=== PATIENT | male | born 1960 | race Caucasian/White ===

== ENCOUNTER → 2016-03-07 | Outpatient (REF) ==
[~2016-03-07] MED LIST: EXCEDRIN MIGRAI1 TAB PO; LOPRESSOR; LORTAB 5/500 501 TAB PO; NAPROSYN PO; NO HOME MEDICATIONS; NORCO 325 MG-51 TAB PO; PEN-VEE K500 MG PO; PERCOCET 325 MG1 TA2 PO; PERCOCET 5/321 UDTAB PO; PRINIVIL10 MG PO; PRINIVIL20 MG PO; PROAIR HFA0.09 MG/AC; RT ADVAIR 228 DISKUS IH; RT SPIRIVA18 MCG IH; SPIRIVA RE2.5 MCG/Ac IH; TOPROL XL 25MG25 MG PO; ULTRAM 50MG TAB50 MG PO; VALIUM5 MG PO; ZITHROMAX 250M250 MG PO
== END ==
LOC: WSOH 10:00
DX: Z02.89 Encounter for other administrative examinations (principal)

== ENCOUNTER → 2016-06-14 | Outpatient (REF) ==
[2016-06-14 13:42] LABS: THYROID STIMULATING HORMONE 1.79 uIU/mL (0.465-4.680)
[2016-06-14 14:28] LABS: PSA-TOTAL 1.32 ng/mL (0-4)
== END ==
LOC: ZLAB.WCH 11:37
PROVIDERS: Internal Medicine
DX: Z01.89 Encounter for other specified special examinations (principal)
CPT/HCPCS: G0103

== ENCOUNTER → 2016-11-13 | Outpatient (REF) | LOC: ZLAB.WCH 11:29 | DX: Z01.89 Encounter for other specified special examinations (principal) ==

== ENCOUNTER 2020-11-23 07:32 | Day surgery (SDC) | payer OTHER ==
[~2020-11-23] VITALS: Ht 170.2 cm; Wt 77.8 kg
[2020-11-23 08:33] VITALS: BP 99/58; PULSE 75; TEMP 97.3
[2020-11-23] MEDS ORDERED: PRINIVIL2.5 MG PO (08:41)
[2020-11-23] MEDS ORDERED: TOPROL XL 25MG25 MG PO (08:41)
[2020-11-23] MEDS ORDERED: ASPIRIN E.C. 8181 MG PO (08:42)
[2020-11-23] MEDS ORDERED: CRESTOR20 MG PO (08:42)
[2020-11-23] MEDS ORDERED: HCTZ12.5TAB PO (08:42)
[2020-11-23 09:50] VITALS: BP 92/55; PULSE 74
[2020-11-23 10:00] VITALS: BP 101/73; PULSE 73
[2020-11-23 10:15] VITALS: BP 99/62; PULSE 60
--- NOTE | 2020-11-23 10:35 | NUR ---
0950 Pt returns from endo procedure via cart and RN assist to [facility] [place] [facility]. Pt ambulates from cart to recliner with RN assist. Monitors on and alarms set. Call light within reach. Report received from [facility] Brasher. Pt alert and oriented. Pt requests Sprite and saltines. Pt denies any pain or nausea. 1000 Pt taking food and drink well. No complications noted. 1028 Discharge instructions given to pt. All questions answered to his satisfaction. Handed to pt are a thank you card and discharge information. 1035 Pt transferred out of the hospital via wheelchair and this RN assist, to private vehicle driven by [employer].
== END 2020-11-23 10:35 | disposition home or self-care (01) ==
LOC: SDCO 07:32
DX: Z12.11 Encounter for screening for malignant neoplasm of colon (principal); D12.5 Benign neoplasm of sigmoid colon; K57.30 Diverticulosis of large intestine without perforation or abscess without bleeding; K90.9 Intestinal malabsorption, unspecified; I10 Essential (primary) hypertension; I34.0 Nonrheumatic mitral (valve) insufficiency; I25.10 Atherosclerotic heart disease of native coronary artery without angina pectoris; J44.9 Chronic obstructive pulmonary disease, unspecified; M19.90 Unspecified osteoarthritis, unspecified site; M17.12 Unilateral primary osteoarthritis, left knee; M16.0 Bilateral primary osteoarthritis of hip; E55.9 Vitamin D deficiency, unspecified; F17.210 Nicotine dependence, cigarettes, uncomplicated; Z79.899 Other long term (current) drug therapy; Z79.82 Long term (current) use of aspirin
CPT/HCPCS: J2704; J7030

== ENCOUNTER → 2023-08-10 | Day surgery (SDC) | payer OTHER ==
[~2023-08-10] MED LIST changes: +ASPIRIN E.C. 8181 MG PO; +BRILINTA90 MG PO; +CRESTOR20 MG PO; +CRESTOR40 MG PO; +HCTZ12.5TAB PO; +PRINIVIL2.5 MG PO
== END ==
LOC: COL.CAR 07:00
DX: R07.89 Other chest pain (principal)
CPT/HCPCS: 27591; 27619; 27620